=== PATIENT | male | born 1975 | race Two or more races ===

== ENCOUNTER 2019-11-24 11:28 | Emergency (ER) | payer MEDICAID ==
[~2019-11-24] VITALS: Ht 188 cm; Wt 136.0 kg
[2019-11-24 11:50] VITALS: BP 142/86
[2019-11-24] MEDS ORDERED: HYDROCODONE/ACETAMINOPHEN 5/325MG TABLET PO ONE (14:45)
== END 2019-11-24 16:50 | disposition home or self-care (01) ==
LOC: ER 11:28
DX: M79.605 Pain in left leg (principal); M25.512 Pain in left shoulder; S82.202A Unspecified fracture of shaft of left tibia, initial encounter for closed fracture; R03.0 Elevated blood-pressure reading, without diagnosis of hypertension; W01.0XXA Fall on same level from slipping, tripping and stumbling without subsequent striking against object, initial encounter; Y93.89 Activity, other specified; Y92.89 Other specified places as the place of occurrence of the external cause
CPT/HCPCS: 73030; 73590; 73600; 73620; 99284

== ENCOUNTER 2019-12-03 14:14 | Emergency (ER) | payer MEDICAID ==
[~2019-12-03] VITALS: Ht 188 cm; Wt 136.0 kg
[2019-12-03] MEDS ORDERED: HYDROCODONE/ACETAMINOPHEN 5/325MG TABLET PO ONE (16:30)
[2019-12-03 16:51] VITALS: BP 145/81
== END 2019-12-03 16:55 | disposition home or self-care (01) ==
LOC: ER 14:14
DX: M79.605 Pain in left leg (principal); Z89.612 Acquired absence of left leg above knee
CPT/HCPCS: 99283

== ENCOUNTER 2020-03-21 12:38 | Emergency (ER) | payer MEDICAID ==
[~2020-03-21] VITALS: Ht 185.4 cm; Wt 85.0 kg
[2020-03-21] MEDS ORDERED: IBUPROFEN 600MG TABLET PO ONE (14:30)
[2020-03-21] MEDS ORDERED: SODIUM CHLORIDE 0.9% 1,000 ML IV ONE (15:49)
[2020-03-21] MEDS ORDERED: TETANUS, DIPHTHERIA, PERTUSSIS VAC/PF 0.5ML (>7YR OLD) IM ONE (16:00)
[2020-03-21] MEDS ORDERED: LIDOCAINE HCL/EPINEPHRINE 1%-EPI 1:100,000 30 ML VIAL INFIL ONE (16:00)
[2020-03-21] MEDS ORDERED: LIDOCAINE HCL/EPINEPHRINE 1%-EPI 1:100,000 20 ML VIAL INFIL SCH (16:06)
[2020-03-21 16:12] LABS: BASOPHILS % 0.9 % (0.0-2.0); HEMATOCRIT. 42.7 % (42.0-52.0); HEMOGLOBIN. 14.8 g/dL (14.0-18.0); LYMPHOCYTES % 30.4 % (20.0-50.0); MEAN CORPUSCULAR HEMOGLOBIN 31.9 pg (28.0-32.0); MEAN CORPUSCULAR VOLUME 91.8 fL (80.0-94.0); MEAN PLATELET VOLUME 8.1 fl (7.4-10.4); MONOCYTES % 10.1 % (2.0-8.0); NEUTROPHILS % 54.6 % (40.0-76.0); PLATELET 257 x1000/uL (130-400); RED BLOOD CELL COUNT 4.66 mill/uL (4.7-6.1); RED CELL DISTRIBUTION WIDTH 13.4 % (11.6-14.6)
[2020-03-21 16:16] LABS: CHLORIDE 107 mEq/L (98-107)
[2020-03-21 16:20] LABS: ETHANOL BLOOD < 10 mg/dL
[2020-03-21 16:43] LABS: CLARITY URINE CLEAR (CLEAR); COLOR URINE DARK YELLOW (YELLOW); KETONES URINE TRACE (NEGATIVE); LEUKOCYTE ESTERASE URINE TRACE (NEGATIVE); NITRITE URINE NEGATIVE (NEGATIVE); OCCULT BLOOD URINE NEGATIVE (NEGATIVE); PH URINE 5.5 (4.5-8.0); PROTEIN URINE 2+ (NEGATIVE); SPECIFIC GRAVITY URINE 1.036 (1.005-1.030)
[2020-03-21 17:07] LABS: *AMPHETAMINES SCREEN URINE PRESUMTIVE POSITIVE (NEGATIVE)
[2020-03-21 17:08] LABS: *BARBITURATES SCREEN URINE NEGATIVE (NEGATIVE); *BENZODIAZEPINES SCREEN URINE NEGATIVE (NEGATIVE); *COCAINE SCREEN URINE NEGATIVE (NEGATIVE); METHADONE URINE SCREEN NEGATIVE (NEGATIVE); OPIATES URINE SCREEN NEGATIVE (NEGATIVE); PHENCYCLIDINE URINE SCREEN NEGATIVE (NEGATIVE)
[2020-03-21 17:09] LABS: CANNABINOID URINE SCREEN PRESUMTIVE POSITIVE (NEGATIVE)
[2020-03-21 18:00] VITALS: BP 113/64
== END 2020-03-21 18:24 | disposition home or self-care (01) ==
LOC: ER 13:26
DX: S51.012A Laceration without foreign body of left elbow, initial encounter (principal); B00.1 Herpesviral vesicular dermatitis; R55 Syncope and collapse; X58.XXXA Exposure to other specified factors, initial encounter; Y93.89 Activity, other specified; Y92.89 Other specified places as the place of occurrence of the external cause; Y99.8 Other external cause status
CPT/HCPCS: 12001; 36415; 80053; 80305; 80320; 81003; 82962; 83690; 85025; 90471; 90715; 93005; 99285; J3490; J7030; G0480

== ENCOUNTER 2020-09-25 16:34 | Emergency (ER) | payer MEDICAID ==
[~2020-09-25] VITALS: Ht 185.4 cm; Wt 99.0 kg
[2020-09-25] MEDS ORDERED: IBUPROFEN 400MG TABLET PO ONE (17:15)
[2020-09-25 17:43] VITALS: BP 138/91
== END 2020-09-25 17:44 | disposition home or self-care (01) ==
LOC: ER 16:34
DX: U07.1 COVID-19 (principal); R03.0 Elevated blood-pressure reading, without diagnosis of hypertension
CPT/HCPCS: 87635; 99283

== ENCOUNTER 2021-03-05 18:05 | Emergency (ER) | payer MEDICAID ==
[~2021-03-05] VITALS: Ht 185.4 cm; Wt 130.0 kg
[2021-03-05] MEDS ORDERED: ONDANSETRON HCL 4MG/2ML INJ IV STA (19:56)
[2021-03-05] MEDS ORDERED: PANTOPRAZOLE SODIUM 40 MG/VIAL IV STA (19:56)
[2021-03-05] MEDS ORDERED: SODIUM CHLORIDE 0.9% 1,000 ML IV ONE (20:00)
[2021-03-05] MEDS ORDERED: VISCOUS LIDOCAINE 2% 15 ML UDC PO STA (20:04)
[2021-03-05] MEDS ORDERED: MAGNESIUM/ALUMINUM HYDROXIDE/SIMETHICONE 30ML UDC PO STA (20:04)
[2021-03-05 20:51] LABS: BASOPHILS % 0.4 % (0.0-2.0); EOSINOPHILS % 2.2 % (0.0-5.0); LYMPHOCYTES % 17.7 % (20.0-50.0); MEAN CORPUSCULAR HEMOGLOBIN 30.9 pg (28.0-32.0); MEAN CORPUSCULAR VOLUME 88.5 fL (80.0-94.0); MEAN PLATELET VOLUME 8.2 fl (7.4-10.4); MONOCYTES % 14.5 % (2.0-8.0); NEUTROPHILS % 65.2 % (40.0-76.0); PLATELET 220 x1000/uL (130-400); RED BLOOD CELL COUNT 4.86 mill/uL (4.7-6.1); RED CELL DISTRIBUTION WIDTH 13.1 % (11.6-14.6)
[2021-03-05 20:57] LABS: CHLORIDE 101 mEq/L (98-107)
[2021-03-05 20:58] LABS: PROTHROMBIN TIME 10.3 sec (9.6-11.0)
[2021-03-05 21:12] LABS: CLARITY URINE CLEAR (CLEAR); COLOR URINE YELLOW (YELLOW); KETONES URINE TRACE (NEGATIVE); LEUKOCYTE ESTERASE URINE NEGATIVE (NEGATIVE); NITRITE URINE NEGATIVE (NEGATIVE); OCCULT BLOOD URINE 1+ (NEGATIVE); PROTEIN URINE NEGATIVE (NEGATIVE); SPECIFIC GRAVITY URINE 1.023 (1.005-1.030)
[2021-03-05] MEDS ORDERED: PROT40 PO (23:25)
[2021-03-05] MEDS ORDERED: ONDA4TAB11 PO (23:25)
[2021-03-05 23:28] VITALS: BP 115/71
== END 2021-03-05 23:49 | disposition home or self-care (01) ==
LOC: ER 18:05
DX: R10.13 Epigastric pain (principal); R11.10 Vomiting, unspecified; R19.7 Diarrhea, unspecified; F12.10 Cannabis abuse, uncomplicated; Z98.890 Other specified postprocedural states
CPT/HCPCS: 36415; 80053; 81003; 83690; 85025; 85610; 96361; 96374; 96375; 99284; C9113; J2405; J7030; Z7610

== ENCOUNTER 2021-09-12 12:42 | Emergency (ER) | payer MEDICAID ==
[~2021-09-12] VITALS: Ht 185.4 cm; Wt 127.0 kg
[~2021-09-12 12:42] MED LIST: ONDA4TAB11 PO; PROT40 PO
[2021-09-12 12:45] VITALS: BP 154/94
== END 2021-09-12 17:46 | disposition home or self-care (01) ==
LOC: ER 12:42
DX: B34.9 Viral infection, unspecified (principal); R19.7 Diarrhea, unspecified; R51.9 Headache, unspecified; R43.8 Other disturbances of smell and taste; F12.10 Cannabis abuse, uncomplicated; I10 Essential (primary) hypertension; Z79.899 Other long term (current) drug therapy; Z98.890 Other specified postprocedural states
CPT/HCPCS: 93005; 99283

== ENCOUNTER 2022-04-11 09:03 | Emergency (ER) | payer MEDICAID ==
[~2022-04-11] VITALS: Ht 185.4 cm; Wt 127.0 kg
[2022-04-11] MEDS ORDERED: DICYCLOMINE 10 MG/5 ML ORAL SYR PO STA (09:25)
[2022-04-11] MEDS ORDERED: ONDANSETRON 4MG ODT PO STA (09:25)
[2022-04-11] MEDS ORDERED: MAGNESIUM/ALUMINUM HYDROXIDE/SIMETHICONE 30ML UDC PO STA (09:25)
[2022-04-11] MEDS ORDERED: MAGNESIUM/ALUMINUM HYDROXIDE/SIMETHICONE 30ML UDC PO NR (09:30)
[2022-04-11] MEDS ORDERED: ONDANSETRON 4MG ODT PO NR (09:30)
[2022-04-11] MEDS ORDERED: DICYCLOMINE 10 MG/5 ML ORAL SYR PO NR (09:30)
[2022-04-11] MEDS ORDERED: PROT40 MT (09:48)
[2022-04-11 09:58] VITALS: BP 136/82
== END 2022-04-11 10:00 | disposition home or self-care (01) ==
LOC: ER 09:03
DX: R10.13 Epigastric pain (principal); R03.0 Elevated blood-pressure reading, without diagnosis of hypertension
CPT/HCPCS: 99284; Q0162

== ENCOUNTER 2022-08-14 23:11 | Emergency (ER) | payer MEDICAID ==
[~2022-08-14] VITALS: Ht 188 cm; Wt 105.0 kg
[~2022-08-14 23:11] MED LIST changes: +PROT40 MT
[2022-08-14 23:39] VITALS: BP 159/86
== END 2022-08-15 00:15 | disposition home or self-care (01) ==
LOC: ER 23:27
DX: R44.3 Hallucinations, unspecified (principal); F91.8 Other conduct disorders; R00.0 Tachycardia, unspecified; R03.0 Elevated blood-pressure reading, without diagnosis of hypertension; Z89.111 Acquired absence of right hand
CPT/HCPCS: 99283

== ENCOUNTER 2022-09-25 12:41 | Emergency (ER) | payer MEDICAID, OTHER ==
[~2022-09-25] VITALS: Ht 180.3 cm; Wt 100.0 kg
[2022-09-25] MEDS ORDERED: HYDR-4001 MT (12:55)
[2022-09-25] MEDS: HYDROCODONE/ACETAMINOPHEN 5/325MG TABLET PO ONE (13:03)
[2022-09-25 13:13] VITALS: BP 140/90
== END 2022-09-25 13:16 | disposition home or self-care (01) ==
LOC: ER 12:41
DX: G54.6 Phantom limb syndrome with pain (principal); M79.601 Pain in right arm; F41.9 Anxiety disorder, unspecified; F32.9 Major depressive disorder, single episode, unspecified; F12.10 Cannabis abuse, uncomplicated; Z79.899 Other long term (current) drug therapy
CPT/HCPCS: 99283

== ENCOUNTER 2023-12-21 16:21 | Emergency (ER) | payer MEDICAID, OTHER ==
[~2023-12-21] VITALS: Ht 185.4 cm; Wt 121.0 kg
[~2023-12-21 16:21] MED LIST changes: +HYDR-4001 MT
[2023-12-21 16:51] VITALS: BP 115/52; PULSE 69; RESP 16; TEMP 98.5; O2SAT 100
[2023-12-21] MEDS ORDERED: P50 MT (19:00)
[2023-12-21] MEDS ORDERED: DIPH25CA83 MT (19:00)
== END 2023-12-21 19:06 | disposition home or self-care (01) ==
LOC: ER 16:21
DX: T78.40XA Allergy, unspecified, initial encounter (principal); R21 Rash and other nonspecific skin eruption; F41.9 Anxiety disorder, unspecified; F32.9 Major depressive disorder, single episode, unspecified; F12.10 Cannabis abuse, uncomplicated; Z79.899 Other long term (current) drug therapy; X58.XXXA Exposure to other specified factors, initial encounter
CPT/HCPCS: 99281